=== PATIENT | female | born 1935 | race African-American/Black ===

== ENCOUNTER 2016-09-21 14:15 | Emergency (ER) | payer OTHER ==
[~2016-09-21] VITALS: Ht 162.6 cm; Wt 102.1 kg
[2016-09-21] MEDS ORDERED: MOBIC15 MG PO (15:14)
[2016-09-21] MEDS ORDERED: CYCLOBENZAPRINE5 MG PO (15:14)
[2016-09-21] MEDS ORDERED: SENOKOT-S1 TA1 PO (15:15)
[2016-09-21] MEDS ORDERED: NORCO 5-325 TA1 EACH PO (15:56)
[2016-09-21 16:12] VITALS: BP 149/85
== END 2016-09-21 16:13 | disposition home or self-care (01) ==
LOC: ER 14:15
DX: M54.42 Lumbago with sciatica, left side (principal); E11.9 Type 2 diabetes mellitus without complications; Z88.8 Allergy status to other drugs, medicaments and biological substances

== ENCOUNTER 2016-11-23 00:20 | Emergency (ER) | payer OTHER ==
[~2016-11-23] VITALS: Ht 162.6 cm; Wt 90.7 kg
--- NOTE | ~2016-11-23 | EKG ---
[place] [address] [employer] [address] ELECTROCARDIOGRAM REPORT Name: CELSO MANZANO Room #: DEP [facility]#: [id number] Admission: 11/23/16 Attend Phys: Discharge: 11/23/16 Date of : 35 Report #: [id number] THIS REPORT FOR: //name// [facility] ED Test Date: 2016-11-23 Test Time: 00:26:42 Pat Name: CELSO MANZANO Department: Room: Gender: F House Director: KKODJOVI : 1935 Requested By: Carina Jhaveri Order Number: [id number] MD: Herber Peña Measurements Intervals [place] Rate: 90 P: 44 WI: 135 QRS: 1 QRSD: 77 T: 33 QT: 354 QTc: 433 Interpretive Statements Sinus rhythm Low voltage, precordial leads Compared to ECG 01/21/2016 20:22:05 No significant change was found Electronically Signed On 11-23-2016 9:27:26 CDT by Herber Peña [email or web address] <ELECTRONICALLY SIGNED> By: Herber Peña MD, [facility] 11/23/16 0927 Herber Peña MD, [facility] /EPI
[~2016-11-23 00:20] MED LIST: CYCLOBENZAPRINE5 MG PO; MOBIC15 MG PO; NORCO 5-325 TA1 EACH PO; SENOKOT-S1 TA1 PO
[2016-11-23] MEDS ORDERED: LANTUS SOL100 UNIT/1 SUBQ (00:58)
[2016-11-23 00:59] LABS: ABSOLUTE NEUTROPHILS 2.7 thou/uL (1.4-8.2); BASOPHILS 0.8 % (0.0-2.0); EOSINOPHILS 3.9 % (0.0-3.0); HEMATOCRIT 38.8 % (37.0-47.0); LYMPHOCYTES 35.5 % (24.0-44.0); MCH 29.7 pg (26.0-34.0); MCHC 33.3 g/dL (28.0-37.0); MCV 88.9 fL (80.0-100.0); MONOCYTES 8.8 % (1.0-8.0); PLATELET COUNT 274 thou/uL (150-400); RBC 4.37 mil/uL (4.20-5.00); RDW 13.7 % (10.5-14.5); WBC 5.4 thou/uL (4.0-11.0)
[2016-11-23 01:00] LABS: MANUAL DIFF NO
[2016-11-23 01:09] LABS: ANION GAP 6 mmol/L (7-16); BUN 13 mg/dL (7-18); CALCIUM 9.2 mg/dL (8.5-10.1); CHLORIDE 108 mmol/L (98-107); CO2 31 mmol/L (21-32); CREATININE 0.8 mg/dL (0.6-1.0); GLUCOSE 175 mg/dL (74-106); POTASSIUM 3.7 mmol/L (3.5-5.1); SODIUM 145 mmol/L (136-145)
[2016-11-23 01:13] LABS: ALBUMIN 3.1 g/dL (3.4-5.0); ALKALINE PHOSPHATASE 86 U/L (46-116); DIRECT BILIRUBIN < 0.1 mg/dL (<0.1-0.3); SGOT 18 U/L (15-37); SGPT 14 U/L (30-65); TOTAL BILIRUBIN 0.3 mg/dL (<0.1-1.0); TOTAL PROTEIN 7.4 g/dL (6.4-8.2)
[2016-11-23 01:16] LABS: URINE BILIRUBIN NEGATIVE (Negative); URINE BLOOD NEGATIVE (Negative); URINE COLOR YELLOW; URINE GLUCOSE-RANDOM* 1+ (Negative); URINE KETONES NEGATIVE (Negative); URINE NITRITE NEGATIVE (Negative); URINE PROTEIN (DIPSTICK) 1+ (Negative); URINE SPECIFIC GRAVITY 1.015 (1.003-1.035); URINE UROBILINOGEN 0.2 E.U./dl (0.2-1.0)
[2016-11-23 01:25] LABS: SQUAMOUS 4-10 Moderate /LPF (0-3)
[2016-11-23 01:26] LABS: CASTS None Seen /LPF (None Seen); CRYSTALS None Seen /LPF (None Seen); URINE RBC 0-2 Rare /HPF (0-2); URINE WBC 0-5 Rare /HPF (0-5)
[2016-11-23 03:03] VITALS: BP 166/81
== END 2016-11-23 03:05 | disposition home or self-care (01) ==
LOC: ER 00:20
PROVIDERS: Emergency Medicine
DX: F41.9 Anxiety disorder, unspecified (principal); S10.91XA Abrasion of unspecified part of neck, initial encounter; S60.311A Abrasion of right thumb, initial encounter; R81 Glycosuria; E11.9 Type 2 diabetes mellitus without complications; Z90.49 Acquired absence of other specified parts of digestive tract; Z79.4 Long term (current) use of insulin; Z88.8 Allergy status to other drugs, medicaments and biological substances; Y04.8XXA Assault by other bodily force, initial encounter; Y93.89 Activity, other specified; Y92.098 Other place in other non-institutional residence as the place of occurrence of the external cause; Y99.8 Other external cause status

== ENCOUNTER 2018-08-20 18:22 | Inpatient (IN) | payer OTHER ==
[~2018-08-20] VITALS: Ht 165.1 cm; Wt 96.6 kg
[~2018-08-20 18:22] MED LIST changes: +LANTUS SOL100 UNIT/1 SUBQ
[2018-08-20 18:23] VITALS: BP 162/103
[2018-08-20] MEDS ORDERED: ELIQUIS5 MG PO (18:47)
[2018-08-20 19:39] LABS: URINE BILIRUBIN NEGATIVE (Negative); URINE BLOOD NEGATIVE (Negative); URINE CLARITY CLEAR; URINE COLOR YELLOW; URINE GLUCOSE-RANDOM* 3+ (Negative); URINE KETONES NEGATIVE (Negative); URINE LEUKOCYTES-REFLEX NEGATIVE (Negative); URINE NITRITE-REFLEX NEGATIVE (Negative); URINE PROTEIN (DIPSTICK) NEGATIVE (Negative); URINE SPECIFIC GRAVITY 1.015 (1.005-1.035); URINE UROBILINOGEN 0.2 E.U./dl (0.2-1.0)
[2018-08-20 19:54] LABS: BASOPHILS 0.8 % (0.0-2.0); EOSINOPHILS 0.6 % (0.0-3.0); HEMATOCRIT 37.7 % (37.0-47.0); HEMOGLOBIN 12.5 gm/dL (12.0-15.0); LYMPHOCYTES 12.9 % (24.0-44.0); MCHC 33.3 g/dL (28.0-37.0); MCV 87.1 fL (80.0-100.0); MONOCYTES 10.1 % (1.0-8.0); PLATELET COUNT 273 thou/uL (150-400); POLYS 75.6 % (36.0-66.0); RBC 4.33 mil/uL (4.20-5.00); RDW 14.1 % (10.5-14.5); WBC 7.9 thou/uL (4.0-11.0)
[2018-08-20 20:06] LABS: CALCIUM 9.6 mg/dL (8.5-10.1); CREATININE 0.8 mg/dL (0.6-1.0)
[2018-08-20 20:09] LABS: APTT 28.4 Seconds (24.5-32.8); INR 1.1; PROTIME 11.4 Seconds (9.3-11.4)
[2018-08-20 20:12] LABS: ALBUMIN 2.7 g/dL (3.4-5.0); TOTAL BILIRUBIN 0.6 mg/dL (<0.1-1.0); TOTAL PROTEIN 7.4 g/dL (6.4-8.2)
[2018-08-21] VITALS (7 sets, daily range): BP systolic 121–179; BP diastolic 45–657
--- NOTE | 2018-08-21 02:29 | NUR ---
PT ARRIVED ON UNIT FROM ER AT 0100. ADMITTED WITH PERSISTENT TACHYCARDIA AND POSSIBLE DVT. COMES FROM HOME WITH DTR. SEE WOUND DOCUMENTATION. TYLENOL #3 GIVEN IN ER PROVIDING PAIN RELIEF. VOIDING PER BEDPAN. RESTING COMFORTABLY. NO NEEDS VOICED. CALL LIGHT WITHIN REACH. WILL CONTINUE TO PROVIDE FREQUENT OBSERVATION.
--- NOTE | 2018-08-21 18:20 | NUR ---
Assumed care of Pt at 0700. Pt AOX3 in no acute distress. complaining of generalized pain - well controlled with current med regimen. BLE dressings changed this afternoon - WC to see wednesday. diagnostic scans unremarkable so far. turned Q2H and PRN. left side much weaker. tachycardia largely resolved. family present at bedside. good appetite . pt progressing toward poc goals.
--- NOTE | 2018-08-22 02:21 | NUR ---
PT UNABLE TO VOID SO FAR THIS SHIFT. DENIES ANY URGE TO URINATE. BLADDER SCAN >943ML. NOTIFIED SENIOR ENVIRONMENTAL ENGINEER JAILKEEPER FOR HOSPITALIST REGARDING PT'S URINARY RETENTION. ORDER RECEIVED TO PLACE VALDEZ CATHETER. VALDEZ PLACED AND GOOD URINE OUTPUT NOTED. WILL CONTINUE TO MONITOR FURTHER.
--- NOTE | 2018-08-22 03:29 | NUR ---
ASSUMED PT CARE AROUND 1900. ORIENTED X2-3. PT SLEPT MOST OF THE NIGHT. RESP EVEN AND UNLABORED. RESPOSITIONED FREQUENTLY TO PREVENT FURTHER SKIN BREAKDOWN. PAIN MEDICATION GIVEN FOR C/O BLE PAIN. NOT PROGRESSING WELL TOWARD POC GOALS. FALL PRECAUTIONS IN PLACE. WILL CONTINUE TO MONITOR FURTHER.
[2018-08-22 03:45] VITALS: BP 139/58
[2018-08-22 07:23] VITALS: BP 124/42
--- NOTE | 2018-08-22 13:04 | NUR ---
ASSESSMENT: CM REVIEWED CHART AND MET WITH PATIENT AT THE BEDSIDE. PT REPORTS THAT SHE WAS LIVING ON HER OWN BUT STATES SHE HAS BEEN RECENTLY BEEN STAYING AT HER DAUGHTERS HOME. PT REPORTS HAVING ABOUT 10 STEPS TO ENTER THE HOME WITH HANDRAIL. PT REPORTS SHE HAS A WHEELCHAIR WELL A ROLLATER WALKER. PT REPORTS THAT HER DAUGHTER AND FAMILY ARE VERY SUPPORTIVE AND HELP HER. CM DISCUSSED ROLE. PHYSICAL THERAPY SAW PATIENT AND RECOMMENDING POST Acute CARE. CM CONTACTED PATIENTS DAUGHTER FLORENTINO AND DISCUSSED THIS. PT HAS NOT BEEN TO A SNF IN THE PAST OR ACUTE REHAB. DAUGHTER REPORTS SHE HAS NOT HAD HH THAT SHE IS AWARE OF. CM DISCUSSED POST ACUTE CARE VS HH AND HOW SHE WOULD LIKELY BENEFIT FROM SNF. DAUGHTER STATES SHE IS UNSURE THAT THEY WANT HER TO GO TO A SNF AND FEEL FAMILY IS ABLE TO PROVIDE GOOD CARE FOR HER. SHE STATES SHE WILL DISCUSS WITH ALL THE FAMILY FIRST AND WITH PATIENT. PT STATES SHE WILL DO WHAT SHE HAS TO DO. CM LEFT [facility] SNF LIST AT THE PATIENTS BEDSIDE FOR FAMILY TO REVIEW IF THEY DECIDE THEY WANT TO GO TO A SNF. CM WILL CONTINUE TO FOLLOW TO ASSIST NEEDED.
--- NOTE | 2018-08-22 13:26 | NUR ---
WOUN CONSULT; ASSESSMENT ; A LEFT BUTTOCKS WOUND RE; FRICTION. NO S/S OF INFECTION. A RIGHT LE WOUND; AN UNSTABLE BLISTER, CLEAN WOUND BED, NO S/S OF INFECTION WITH S/S OF CHRONIC EDEMA. LLE WITH S/S OF CHRONIC EDEMA, NO S/S OF INFECTION, A STABLE BLISTER IS PRESENT. RECOMMENDATIONS; 1-BARRIER CREAM TO BUTTOCKS 2-OPTIFOAM, KERLIX, AND DAT WRAP TO LOWER EXTREMITIES BILATERALLY 3-TURN Q2H DISCUSSED WITH RN
[2018-08-22 16:03] VITALS: BP 105/66
--- NOTE | 2018-08-22 17:30 | NUR ---
Assumed care of PT at 0700. Pt has been A&O to person, place, and situation, with some confusion regarding day/time. Remains in NSR. Patient has been repositioned Q2H today to prevent skin breakdown and to facilitate pain relief. In the AM PT began complaining of intermittant, severe shooting pain radiating to both legs, with pain alternating from one leg to the other. Pain produced facial grimacing, visible tension, and tears. Pt unsure of cause. Upon further assessment patient reported several falls over the last year that resulted in landing on her buttox. Shared this with the geriatric AS400 ANALYST and after she spoke with PT, she said some imaging was indicated. Still awaiting orders. Pt's pain has been partially relieved by PRN Tylenol and repositioning in mild [place] variations. Pt currently has 3 skin wounds. Left buttock, LLE, and LRE. Wound care rounded and submitted orders for daily care. Wound care also noted they would submit orders for an airflow mattress. Still awaiting. Pt went for Nuclear Med lung perfusion scan. Results showed "No evidence of pulmonary embolus." Spoke w/ Pt's daughter at length. Family expresses concern over food intake and urinary retention w/o a delgado present. Pt ate half to all of meals so far today. Patient is slowly progressing toward POC goals. I will continue to monitor and assess.
[2018-08-22 19:18] VITALS: BP 144/51
[2018-08-23 03:16] VITALS: BP 153/50
--- NOTE | 2018-08-23 03:26 | NUR ---
ASSUMED PT CARE AROUND 1900. ORIENTED X4. C/O BLE PAIN. PT SLEPT MOST OF THE NIGHT. RESP EVEN AND UNLABORED. VALDEZ TO DD FOR RETENTION. Q2H TURN TO PREVENT SKIN BREAKDOWN. FALL PRECAUTIONS IN PLACE. PROGRESSING SLOWLY TOWARD POC GOALS. WILL CONTINUE TO MONITOR FURTHER.
[2018-08-23 07:27] VITALS: BP 124/53
[2018-08-23 15:57] VITALS: BP 131/45
--- NOTE | 2018-08-23 16:13 | NUR ---
on-going assessment: CM REVIEWED CHART AND MET WITH PATIENT AND HER DAUGHTER FLORENTINO AT THE BEDSIDE. DAUGHTER WAS UPSET STATING I THOUGHT I SAID I WOULD CALL YOU WHEN I DECIDED IF WE WANTED TO GO TO SNF. DAUGHTER UPSET STATING SHE HAS NOT TALKED TO A DOCTOR SINCE SHE HAS BEEN HERE. CM NOTIFIED ATTENDING TO PLEASE REACH OUT TO THE DAUGHTER AND PROVIDED HIM WITH HER CONTACT NUMBER.
--- NOTE | 2018-08-23 18:00 | NUR ---
SPOKE AT LENGTH WITH DAUGHTER REGARDING PATIENT TESTS AND PLAN OF CARE..REINFORCED NEED TO TOUR POSSIBLE REHAB FACILITIES PROVIDED BY [facility]..DTR VERY OPPOSED TO SENDING HER MOTHER ANYWHERE BUT HOME WITH HER..
[2018-08-23 19:25] VITALS: BP 115/45
[2018-08-24 03:22] VITALS: BP 139/53
--- NOTE | 2018-08-24 03:59 | NUR ---
ASSUMED PT CARE AROUND 1900. ORIENTED X4. PT SLEPT MOST OF THE NIGHT. RESP EVEN AND UNLABORED. HEATING PAD TO BACK TO HELP WITH BACK PAIN. DENIES ANY SIGNIFICANT PAIN, EXCEPT WITH TURNING. DID NOT WANT ANY PAIN MEDICATION AT BEDTIME. Q2H TURN. HAND SPLINT TO LEFT HAND TO PREVENT CONTRACTION. VALDEZ TO DD. FALL PRECAUTIONS IN PLACE. VSS. PROGRESSING SLOWLY TOWARD POC GOALS. WILL CONTINUE TO MONITOR FURTHER.
[2018-08-24 08:48] VITALS: BP 156/65
[2018-08-24 09:30] LABS: CALCIUM 8.6 mg/dL (8.5-10.1); CREATININE 0.6 mg/dL (0.6-1.0); POTASSIUM 3.9 mmol/L (3.5-5.1)
--- NOTE | 2018-08-24 10:55 | NUR ---
SPOKE AT LENGTH WITH DAUGHTER OVER PHONE ABOUT PT'S COURSE OF CARE. INFORM DAUGHTER THAT PT WILL GET A NEUROLOGY AND PAIN MANAGEMENT CONSULT TODAY WELL IMAGING. WILL START PRUNE JUICE AND BOWEL REGIMEN PER FAMILY CONCERN AND CHANGE DIET TO PUREED. WILL KEEP PT'S DAUGHTER UP DATED.
--- NOTE | 2018-08-24 12:13 | NUR ---
PT OFF UNIT TO MRI.
--- NOTE | 2018-08-24 13:33 | NUR ---
PT RETURN TO UNIT.
--- NOTE | 2018-08-24 14:59 | NUR ---
ON-GOING ASSESSMENT: CM REVIEWED CHART AND SPOKE WITH PATIENTS DAUGHTER FLORENTINO WHO STATES HER AND HER MOTHER HAD A LONG DISCUSSION AND THEIR PLAN IS TO TAKE HER BACK HOME AT DISCHARGE WITH HH. PATIENT HAD BEEN STAYING WITH HER DAUGHTER PRIOR TO ADMISSION. CM DISCUSSED HH AGENCIES IN THE AREA AND DAUGHTER STATED SHE WANTED TO DO SOME RESEARCH BEFORE SENDING A REFERRAL. CM LEFT A HH LIST IN PATIENTS ROON. DAUGHTER ALSO REQUESTING A HOSPITAL BED AT DISCHARGE AND HAS NO PREFERENCE OF [facility]. EMETERIO REACHED OUT TO RAFAEL AT [facility] WHO STATES THEY WILL NEED PROPER DOCUMENTATION. CM NOTIFIED ATTENDING WHO STATES HE WILL BE BACK IN THE HOSITAL THIS EVENING. DAUGHTER ALSO WANTING TO TALK TO THE NEUROLOGIST. CM NOTIFIED BEDSIDE RN WHO STATES HE WAs going TO CONTACT THEM. CM WILL CONTINUE TO FOLLOW.
--- NOTE | 2018-08-24 16:11 | NUR ---
GAVE PT A BED BATH AND COMPLETED GOOD LANE CARE WITH CARIDAD HULL. PLACED INNER DRY ON ABDOMEN.
[2018-08-24 16:58] VITALS: BP 195/66
--- NOTE | 2018-08-24 17:31 | NUR ---
STARTED BOWEL REGIMEN AND PT STARTING TO PASS SONIA.
[2018-08-24 19:45] VITALS: BP 160/84
[2018-08-24 23:20] VITALS: BP 141/69
--- NOTE | 2018-08-25 03:55 | NUR ---
resting quietly tonight. she has been comfortable after taking the compazine iv tonight. she has pain in her back with movement. heating pad on her back with a sheet and pad in between for comfort. leg wraps and dressings changed to lower extremities tonight. she tolerates movement and leg wrap changes without any complaints of discomfort. keeping her turned q2 hours. encouraged use of her yaunker to help manage her secretions. progressing toward discharge goals.
[2018-08-25 04:00] VITALS: BP 131/51
[2018-08-25 07:22] VITALS: BP 97/43
--- NOTE | 2018-08-25 14:25 | NUR ---
SW reviewed chart and spoke with nursing and attending physician. Pt is progressing towards goals for discharge. Order for hospital bed sent to [facility]. [facility] requests additional documentation for hospital bed. Info sent to attending physician. Will send to [facility] when available. ALAINA is following to assist as needed with discharge planning.
[2018-08-25 15:11] VITALS: BP 133/40
--- NOTE | 2018-08-25 18:04 | NUR ---
SHIFT SUMMARY: ALERT EARLIER, DROWSY THIS AFTERNOON. VITALS STABLE AND MEDICATED FOR PAIN EARLIER WHEN SHE GOT UP TO THE CHAIR WITH P.T. TOTAL CARE WHEN GETTING HER BACK TO BED WITH O.T. TOLERATING DIET W/O NAUSEA. PLAN ON GOING TO I.R. FOR BIOPSIES TOMORROW.
[2018-08-25 19:22] VITALS: BP 111/40
--- NOTE | 2018-08-26 01:47 | NUR ---
patient is alert and oriented. patient refused insulin for fear that her blood glucose would drop over night. patient is q2turn. patient is incontient of bowel and bladder. patient has delgado. patient is on room air. patient has been npo sense midnight for procedure in am. patient us was neg for dvt per provider note. will past on needs blood thinner post procedure. patient wears brace to lt hand. brace removed for a couple hours tonight. patient is resting comfortably in bed. patients pain is controlled with medication. wcm
[2018-08-26 04:16] VITALS: BP 105/50
[2018-08-26 07:43] VITALS: BP 123/50
[2018-08-26 12:06] VITALS: BP 154/77
--- NOTE | 2018-08-26 15:14 | NUR ---
ALAINA faxed additional clinical info to [facility] for hospital bed. SW updated [facility] liaison. ALAINA spoke with pt's dtr via phone to provide update and discuss discharge plan. Attending physician mentioned possible post-acute placement. Pt's dtr states that post-acute placement has never been the discharge plan, and the plan is for pt to return home with services. SW left HH list in pt's room for dtr to review. Pt's dtr asked about an over the bed table. ALAINA explained that insurance does not cover these items. ALAINA verified with Lore at [facility]. Plan is for pt to d/c home with services when medically stable. ALAINA is following to assist as needed with discharge planning.
[2018-08-26 15:45] VITALS: BP 143/55
--- NOTE | 2018-08-26 17:10 | NUR ---
WOUND FOLLOW UP: PT. WOUND CARE ORDERS WERE UPDATED TODAY TO REFLECTED PROGRESSION OF WOUND HEALING. RECOMMENDATIONS: CONTINUE WITH CURRENT PLAN OF CARE. PT. AND STAFF NURSE WERE INSTRUCTED ON PLAN OF CARE.
--- NOTE | 2018-08-26 18:28 | NUR ---
PATIENT EXPRESSED SHE WAS OK WITH HAVING PROCEEDURE PERFORMED. PHYSICIANS TALKED WITH PATIENTS DAUGHTER AND ROUNDED AND TALKED WITH PATIENT. HOWEVER, WHEN IR CAME TO TRANSPORT PATIENT, SHE HAD QUESTIONS AND HESITATION ABOUT THE PROCEEDURE AND DIDN'T WANT TO HAVE IT DONE. SHE WAS ABLE TO TALK WITH HER DAUGHTER ABOUT THE PROCEEDURE SO HER DAUGHTER EXPRESSED SHE WANTED TO WAIT ON IT. NURSE DID EXPRESS IT WOULD NOT BE ABLE TO BE PERFORMED UNTIL WEDNESDAY SINCE IT WAS NOT AN EMERGENCY. THEY EXPRESSED THEY UNDERSTOOD. PATIENT ASSESSMENT DOCUMENTED. PATIENT DRESSINGS ARE INTACT. THEY WERE CHANGED LAST NIGHT, SO IT WAS NOT CHANGED TODAY. NEW DRESSING APPLIED TO LEFT THIGH WOUND. ASSESSMENTS AND VITAL SIGNS DOCUMENTED. PLAN OF CARE IS TO CONTINUE TO MONITOR PATIENT STATUS AND VITAL SIGNS, AND TO PROVIDE COMFORT ALTERNATIVES FOR HER PAIN.
[2018-08-26 19:37] VITALS: BP 120/55
--- NOTE | 2018-08-27 04:00 | NUR ---
PATIENT IS ALERT AND ORIENTED BUT FORGETFUL AND INDECISIVE. PATIENT HAS A HIGH BLOOD SUGAR BUT IS WEARY OF TAKING INSULIN BEFORE BED AND HAS HAD LOW BLOOD SUGARS THROUGHOUT THE DAYSHIFT. PATIENT IS NSR C PVCS ON TELE. PATIENT IS Q2TURN AND MAX 2 ASSIST. PATIENTS LBM WAS THE 13TH. PATIENT HAS A VALDEZ. PATIENT HAD A BATH ON THE DAY SHIFT. PATIENT IS PENDING IR PROCEDURE ON WEDNESDAY. UNSURE OF DISCHARGE DATE. PATIENT IS RESTING COMFORTABLY IN BED. WCM. PATIENT IS PROGRESSING TO GOALS.
[2018-08-27 05:24] VITALS: BP 137/52
[2018-08-27 07:20] VITALS: BP 120/55
[2018-08-27 15:19] VITALS: BP 153/67
[2018-08-27 20:25] VITALS: BP 134/50
--- NOTE | 2018-08-28 02:53 | NUR ---
patient is alert and oriented. dressing are clean dry and intact. dressings changed on day shift. insulin given to patient specifications. patient is q2 turn. patients lbm was the 13th on the bsc. barrier cream applied to pressure wounds and buttocks. patient is achs accuchecks. patient is nsr on tele. patient is up times 2 with walker and gait belt. patient is pending IR procedure on wednesday. patient has a delgado. patient wishes delgado to be dc today. patients foot care was done during day shift. patient is very indecisive about care. patient is resting comdfortably in bed. wcm.
[2018-08-28 05:00] VITALS: BP 126/53
[2018-08-28 07:26] VITALS: BP 149/66
[2018-08-28 15:04] VITALS: BP 130/52
--- NOTE | 2018-08-28 17:50 | NUR ---
ASSUMED PATIENT CARE AT 0700. A/O X4. MAX ASSISTED TO CHAIR. PATIENT REFUSED TO AMBULATED AND REFUSED TO HAVE INSULIN AT DENER TIME WITH BS 315, WOUND CARE DRESSING CHANGE PER ORDER. PROGRESSING TOWARDS POC GOALS.
[2018-08-28 19:10] VITALS: BP 142/60
--- NOTE | 2018-08-28 21:11 | NUR ---
FAMILY MEMBER (DAUGHTER/ FLORENTINO DEL RIO) CALLED AND VERBAL HERASSED NURSE ABOUT POOR CARE OF PATIENT AT 2100 ON 08/28/18. FAMILY MEMBER CAN BE HOSTILE AND DIFFICULT TO WORK WITH. FAMILY MEMBER IS DISTRACTING FROM CARE WITH LONG CONVERSATIONS AND ACCUSATIONS OF STAFF.
--- NOTE | 2018-08-28 23:22 | NUR ---
PATIENT REFUSED TO BE NPO FOR PROCEDURE 08/29/18. WCM PATIENT REFUSED INSULIN
[2018-08-29 03:04] VITALS: BP 137/53
--- NOTE | 2018-08-29 03:26 | NUR ---
PATIENT IS ALERT AND ORIENTED. PATIENT IS UP TIMES 2 WITH WALKER. PATIENT IS Q2 TURN WHEN IN BED. PATIENT IS SLEEPING CHAIR TONIGHT PER REQUEST. PATIENT IS ACHS ACCUCHECKS WITH HIGH BLOOD GLUCOSE BUT IS REFUSING INSULIN. DRESSING ON RT LEG WOUND WAS CHANGED. PATIENT HAS A BATH. PAIN IS TREATED WITH PAIN MEDICATION. PATIENT REFUSED NPO STATUS AFTER 0000 AND STATES SHE WILL REFUSE THE BIOPSY TODAY. PATIENT IS NSR ON TELE. PATIENT NEEDS BLOOD THINNER IF NOT DISCHARGED TODAY. PATIENT HAS A FOELY FOR RETENTION AND WOULD LIKE IT DISCONTINUED TODAY. PATIENT HAS SPLINT FOR LT HAND BUT REFUSED TO WEAR IT. BARRIER CREAM APPLIED TO BOTTUM. PATIENT LBM WAS THE 13TH. PATIENT IS IN CHAIR WITH ALARM ACTIVE. WCM.
[2018-08-29 07:23] VITALS: BP 128/55
[2018-08-29] MEDS ORDERED: CLARITIN10 MG PO (12:40)
[2018-08-29] MEDS ORDERED: ACETAMINOPHEN-1 EAC1 PO (12:41)
--- NOTE | 2018-08-29 14:05 | NUR ---
I have reviewed the documentation by SONIYA FERRER from 08/29/18 to 08/29/18 and I concur with it. JEFFERSON ALEMAN
--- NOTE | 2018-08-29 17:00 | NUR ---
DISCHARGE NOTE: SW reviewed chart and spoke with nursing and attending physician. Pt is medically stable for discharge home today with services. SW contacted [facility] liaison regarding hospital bed. Bed to be delivered to pt's home this evening. SW spoke with pt's dtr via phone to provide update and discuss discharge plan. Pt's dtr states that she was unaware that pt would be discharged home today. Pt's dtr told [place] that she was not prepared for the bed to be delivered. SW explained that pt is medically stable for discharge today. Pt's dtr states pt had mentioned that she wanted to stay in the hospital or go to a rehab facility. SW met with pt at bedside and had pt's dtr on the phone as well. Discharge plan discussed with pt and dtr. Pt states she wants to return home with HH. List of in-network SNFs reviewed with pt and dtr. Pt's dtr requests HH referral to be sent to [facility]. SW discussed delivery of hospital bed. Pt and dtr discussed hospital bed. Now, pt and dtr state that they do not want the hospital bed anymore. Pt states she would prefer to have a daybed instead of a hospital bed. SW explained that pt is stable for discharge home today. Both pt and dtr are agreeable with discharge tonight. Pt's dtr requests ambulance transportation home due to having multiple stairs to get into the home. SW arranged for ambulance transportation at [id number]. technical planner faxed referral to [facility]. SW updated nursing and attending physician. SW updated [facility] liaison. No additional SW needs identified at this time, but is available to assist should needs arise.
[2018-08-29 17:16] VITALS: BP 128/55
--- NOTE | 2018-08-29 17:16 | NUR ---
dp called [facility] and they do not take patient's insurance.
--- NOTE | 2018-08-29 17:24 | NUR ---
PT IS ALERT AND ORIENTED BUT FORGETUFULL AT TIMES. NSR ON THE BEEHIVE KILN SUPERVISOR. REFUSES INSULIN AT TIMES. EDUCATION GIVEN ON MEDS AND TREATEMENTS AND DIABETES TEACHING. BARRER CREAM TO COCCYX. AND CHANGED DRESSING ON LEFT NGO AND CLEANED. IV DISCONTINUED AND WILL DISCONTINUE VALDEZ CATH PRIOR TO DISMISSAL. DISCHARGE PAPER WORK WITH PT AND INSTRUCTIONS AND SCRIPTS GIVEN TO PT VERBALIZES UNDERSTANDING. PHYSICIAN GYNECOLOGIST TIME ARRANGED PER MOLD MAKER.
== END 2018-08-29 18:18 | disposition home health service (06) | DRG 551 ==
LOC: ER 18:22 → 3W 23:45 → EROBS 23:45 → 3W 08-21 00:36
PROVIDERS: Hospitalist; Student in an Organized Health Care Education/Training Program; ADMIT Hospitalist
DX: M48.061 Spinal stenosis, lumbar region without neurogenic claudication (principal); E43 Unspecified severe protein-calorie malnutrition; I80.10 Phlebitis and thrombophlebitis of unspecified femoral vein; I87.8 Other specified disorders of veins; K57.90 Diverticulosis of intestine, part unspecified, without perforation or abscess without bleeding; N28.1 Cyst of kidney, acquired; B37.3 Candidiasis of vulva and vagina; E11.65 Type 2 diabetes mellitus with hyperglycemia; M62.84 Sarcopenia; R29.6 Repeated falls; M46.46 Discitis, unspecified, lumbar region; Z79.4 Long term (current) use of insulin; Z79.899 Other long term (current) drug therapy; Z91.041 Radiographic dye allergy status; Z88.8 Allergy status to other drugs, medicaments and biological substances; Z90.49 Acquired absence of other specified parts of digestive tract; Z68.35 Body mass index [BMI] 35.0-35.9, adult
CPT/HCPCS: 10879